=== PATIENT | female | born 1985 ===

== ENCOUNTER 2021-04-28 19:16 | Emergency (ER) | payer OTHER, SELFPAY ==
[2021-04-28 19:24] VITALS: BP 123/88; PULSE 98; RESP 16; TEMP 36.3; O2SAT 100
--- NOTE | 2021-04-28 21:48 | PC.NURSE ---
pt called for room, not in lobby.
== END 2021-04-29 00:56 | disposition left against medical advice (07) ==
LOC: ANHED 21:55
DX: M25.511 Pain in right shoulder (principal)
CPT/HCPCS: 99199